=== PATIENT | female | born 1980 | race Caucasian/White ===

== ENCOUNTER 2021-01-24 06:20 | Emergency (ER) | payer OTHER ==
[2021-01-24 06:28] VITALS: BP 136/92; PULSE 76; TEMP 98.4; BMI 33.3
[2021-01-24] MEDS ORDERED: ACETAMINOPHEN 1000 MG/100 ML VIAL (NON FORMULARY) IVPB ONE (07:28)
[2021-01-24] MEDS ORDERED: LIDOCAINE 5% TOPICAL PATCH TP ONE (07:28)
[2021-01-24] MEDS ORDERED: KETOROLAC TROMETHAMINE 15 MG/ML VIAL IVPUSH ONE (07:28)
[2021-01-24] MEDS ORDERED: KETOROLAC TROMETHAMINE 30 MG/1 ML VIAL IM ONE (07:55)
[2021-01-24] MEDS ORDERED: KETOROLAC TROMETHAMINE 15 MG/ML VIAL ONE (07:55)
[2021-01-24] MEDS ORDERED: ACETAMINOPHEN 500 MG TABLET (FP) PO ONE (07:55)
[2021-01-24] MEDS ORDERED: ACETAMINOPHEN 500 MG TABLET (FP) ONE (07:56)
[2021-01-24] MEDS ORDERED: KETOROLAC TROMETHAMINE 30 MG/1 ML VIAL ONE (07:57)
[2021-01-24] MEDS ORDERED: LIDOCAINE PATCH REMOVAL MC ONE (22:00)
== END 2021-01-24 08:31 | disposition home or self-care (01) ==
LOC: JER 06:20
PROC: 3E0233Z Introduction of Anti-inflammatory into Muscle, Percutaneous Approach (ICD-10-PCS; principal; 2021-01-24)
DX: M54.42 Lumbago with sciatica, left side (principal)
CPT/HCPCS: 84703; 96372; 99284-25

== ENCOUNTER 2021-11-27 10:00 | Observation (INO) | payer OTHER ==
[2021-11-27] MEDS ORDERED: KETOROLAC TROMETHAMINE 30 MG/1 ML VIAL IM ONE (10:37)
[2021-11-27] MEDS ORDERED: ACETAMINOPHEN 325 MG TABLET (FP) PO ONE ×2 (10:37→21:15)
[2021-11-27] MEDS ORDERED: ACETAMINOPHEN 325 MG TABLET (FP) ONE (10:41)
[2021-11-27] MEDS ORDERED: KETOROLAC TROMETHAMINE 30 MG/1 ML VIAL ONE (10:42)
[2021-11-27] MEDS: NICOTINE 14 MG/24 HOURS TOPICAL PATCH TD SCH (13:22)
[2021-11-27 16:24] LABS: BASO % 1.1 % (0-2.0); HEMATOCRIT 33.3 % (32.4-45.2); MCH 25.7 pg (25.7-33.7); MCHC 33.1 g/dl (32.0-36.0); MEAN CELL VOLUME 77.6 fl (80-96); MEAN PLT VOLUME 9.4 fl (7.5-11.1); MONO % 10.3 % (3.8-10.2); NEUT % 43.6 % (42.8-82.8); PLATELET COUNT 280 10^3/uL (134-434); RBC 4.29 M/mm3 (3.60-5.2); RDW 19.3 % (11.6-15.6); WHITE BLOOD COUNT 8.3 K/mm3 (4.0-10.0)
[2021-11-27 16:48] LABS: ALBUMIN 3.5 g/dl (3.4-5.0); BLOOD UREA NITROGEN 16.1 mg/dL (7-18); CALCIUM 9.5 mg/dL (8.5-10.1)
[2021-11-27 16:51] LABS: CREATININE 0.9 mg/dL (0.55-1.3)
[2021-11-27 16:53] LABS: BILIRUBIN,TOTAL 0.4 mg/dL (0.2-1); TOT PROT 6.8 g/dl (6.4-8.2)
[2021-11-27] MEDS ORDERED: KETOROLAC TROMETHAMINE 30 MG/1 ML VIAL IM PRN (17:44)
[2021-11-27 20:22] VITALS: BMI 35.4
[2021-11-27] MEDS ORDERED: oxyCODONE HCL 5 MG TABLET PO ONE (21:15)
[2021-11-27] MEDS ORDERED: LIDOCAINE PATCH REMOVAL MC ONE (22:00)
[2021-11-28 08:38] LABS: EOS % 4.9 % (0-4.5); HEMATOCRIT 30.6 % (32.4-45.2); HEMOGLOBIN 10.3 GM/dL (10.7-15.3); MCH 26.1 pg (25.7-33.7); MCHC 33.7 g/dl (32.0-36.0); MEAN CELL VOLUME 77.6 fl (80-96); MEAN PLT VOLUME 9.5 fl (7.5-11.1); MONO % 8.3 % (3.8-10.2); NEUT % 46.8 % (42.8-82.8); PLATELET COUNT 248 10^3/uL (134-434); RBC 3.94 M/mm3 (3.60-5.2); RDW 19.6 % (11.6-15.6); WHITE BLOOD COUNT 8.6 K/mm3 (4.0-10.0)
[2021-11-28 08:52] LABS: CALCIUM 8.9 mg/dL (8.5-10.1)
[2021-11-28 08:53] LABS: ALBUMIN 2.9 g/dl (3.4-5.0); BLOOD UREA NITROGEN 18.7 mg/dL (7-18); MAGNESIUM 2.2 mg/dL (1.8-2.4)
[2021-11-28 08:55] LABS: CREATININE 0.8 mg/dL (0.55-1.3)
[2021-11-28 08:56] LABS: BILIRUBIN,TOTAL 0.8 mg/dL (0.2-1); PHOSPHOROUS 3.9 mg/dL (2.5-4.9); TOT PROT 5.9 g/dl (6.4-8.2)
[2021-11-28] MEDS ORDERED: ENOXAPARIN NA (PORCINE) 40 MG/0.4 ML DISP.SYRIN SQ SCH (10:00)
[2021-11-28] MEDS: ENOXAPARIN NA (PORCINE) 40 MG/0.4 ML DISP.SYRIN SQ SCH (10:28)
[2021-11-28] MEDS: ACETAMINOPHEN 325 MG TABLET (FP) PO PRN (10:28)
[2021-11-28] MEDS: NICOTINE 14 MG/24 HOURS TOPICAL PATCH TD SCH (10:28)
[2021-11-28] MEDS: CYCLOBENZAPRINE HCL 5 MG TABLET PO PRN ×2 (12:30→16:46)
[2021-11-28] MEDS: PANTOPRAZOLE 40 MG TABLET PO SCH (12:30)
[2021-11-28] MEDS: IBUPROFEN 800 MG/8 ML IJ IVPB SCH ×3 (12:31→23:20)
[2021-11-28] MEDS ORDERED: MAG HYDROX/AL HYDROX/SIMETH 30 ML UNIT-DOSE CUP PO ONE ×2 (19:07→23:39)
[2021-11-29] MEDS: IBUPROFEN 800 MG/8 ML IJ IVPB SCH (06:30)
[2021-11-29] MEDS: CYCLOBENZAPRINE HCL 5 MG TABLET PO PRN ×3 (07:47→21:40)
[2021-11-29] MEDS: NICOTINE 14 MG/24 HOURS TOPICAL PATCH TD SCH (09:52)
[2021-11-29] MEDS: ENOXAPARIN NA (PORCINE) 40 MG/0.4 ML DISP.SYRIN SQ SCH (09:53)
[2021-11-29] MEDS: PANTOPRAZOLE 40 MG TABLET PO SCH (09:53)
[2021-11-29] MEDS ORDERED: MAG HYDROX/AL HYDROX/SIMETH 30 ML UNIT-DOSE CUP PO PRN ×2 (11:12→11:14)
[2021-11-29] MEDS ORDERED: IBUPROFEN 800 MG/8 ML IJ IVPB PRN (13:02)
[2021-11-29] MEDS: POLYETHYLENE GLYCOL (HEALTHYLAX) 3350 17 GM PACKET PO SCH ×2 (13:20→21:36)
[2021-11-29] MEDS: ACETAMINOPHEN 325 MG TABLET (FP) PO PRN (17:24)
[2021-11-29] MEDS ORDERED: MELATONIN 5 MG TABLETS PO PRN (19:01)
[2021-11-30] MEDS: CYCLOBENZAPRINE HCL 5 MG TABLET PO PRN (05:29)
[2021-11-30] MEDS: ACETAMINOPHEN 325 MG TABLET (FP) PO PRN (05:29)
[2021-11-30 07:53] VITALS: BP 125/84; PULSE 88; TEMP 98.2
== END 2021-11-30 11:26 | disposition home or self-care (01) ==
LOC: JER 10:00 → JERBED 12:42 → J6S 18:20
PROVIDERS: ADMIT Internal Medicine; ATTEND Internal Medicine
PROC: 3E023GC Introduction of Other Therapeutic Substance into Muscle, Percutaneous Approach (ICD-10-PCS; principal; 2021-11-27)
DX: M54.9 Dorsalgia, unspecified (principal); G89.29 Other chronic pain; E66.8 Other obesity; Z68.35 Body mass index [BMI] 35.0-35.9, adult; Z88.6 Allergy status to analgesic agent; F17.210 Nicotine dependence, cigarettes, uncomplicated
CPT/HCPCS: 36415; 72100-TC-FY; 80053; 83735; 84100; 85025; 93005; 93010; 96372; 97116-GP; 97162-GP; 99285-25; C9803; G0378; U0003; U0005

== ENCOUNTER 2021-12-02 18:05 | Observation (INO) | payer OTHER ==
[2021-12-02] MEDS ORDERED: KETOROLAC TROMETHAMINE 30 MG/1 ML VIAL IVPUSH ONE (19:29)
[2021-12-02] MEDS ORDERED: diazePAM CARPU-JECT 10 MG/2 ML DISP.SYRIN IVPUSH ONE (19:29)
[2021-12-02] MEDS ORDERED: DEXAMETHASONE SOD PHOSPHATE 10 MG/1 ML VIAL IVPUSH ONE (19:29)
[2021-12-02] MEDS ORDERED: DEXAMETHASONE SOD PHOSPHATE 10 MG/1 ML VIAL ONE (20:04)
[2021-12-02] MEDS ORDERED: diazePAM CARPU-JECT 10 MG/2 ML DISP.SYRIN ONE (20:04)
[2021-12-02] MEDS ORDERED: KETOROLAC TROMETHAMINE 30 MG/1 ML VIAL ONE (20:04)
[2021-12-02 20:45] LABS: BASO % 1.4 % (0-2.0); EOS % 4.8 % (0-4.5); HEMATOCRIT 34.6 % (32.4-45.2); HEMOGLOBIN 11.5 GM/dL (10.7-15.3); LYMPH % 37.3 % (8-40); MCHC 33.2 g/dl (32.0-36.0); MEAN CELL VOLUME 78.4 fl (80-96); MEAN PLT VOLUME 9.6 fl (7.5-11.1); MONO % 7.4 % (3.8-10.2); NEUT % 49.1 % (42.8-82.8); PLATELET COUNT 263 10^3/uL (134-434); RBC 4.41 M/mm3 (3.60-5.2); RDW 19.7 % (11.6-15.6); WHITE BLOOD COUNT 7.3 K/mm3 (4.0-10.0)
[2021-12-02 21:05] LABS: BLOOD UREA NITROGEN 20.3 mg/dL (7-18); CALCIUM 9.1 mg/dL (8.5-10.1); MAGNESIUM 2.2 mg/dL (1.8-2.4)
[2021-12-02 21:08] LABS: CREATININE 0.8 mg/dL (0.55-1.3)
[2021-12-02 21:10] LABS: BILIRUBIN,TOTAL 0.4 mg/dL (0.2-1)
[2021-12-02 21:14] LABS: TOT PROT 7.1 g/dl (6.4-8.2)
[2021-12-02 21:18] LABS: ALBUMIN 3.6 g/dl (3.4-5.0)
[2021-12-02] MEDS ORDERED: ACETAMINOPHEN 1000 MG/100 ML BAG IVPB ONE (21:52)
[2021-12-02] MEDS ORDERED: ACETAMINOPHEN INJECTION 100 ML IVPB ONE (22:16)
[2021-12-03] MEDS ORDERED: METHYL SALICYLATE/MENTHOL OINT 30 GM TUBE TP PRN (02:21)
[2021-12-03] MEDS ORDERED: ACETAMINOPHEN 325 MG TABLET (FP) PO PRN (05:00)
[2021-12-03] MEDS: CYCLOBENZAPRINE HCL 5 MG TABLET PO SCH ×4 (05:37→21:20)
[2021-12-03] MEDS ORDERED: CYCLOBENZAPRINE HCL 5 MG TABLET PO SCH (06:00)
[2021-12-03] MEDS ORDERED: BUPRENORPHINE/NALOXONE 8 MG/2 MG FILM PACKET SL SCH (06:00)
[2021-12-03 06:04] VITALS: BMI 37.3
[2021-12-03 08:37] LABS: BASO % 1.1 % (0-2.0); EOS % 0.1 % (0-4.5); HEMATOCRIT 34.5 % (32.4-45.2); HEMOGLOBIN 11.7 GM/dL (10.7-15.3); LYMPH % 18.7 % (8-40); MCH 26.3 pg (25.7-33.7); MCHC 33.8 g/dl (32.0-36.0); MEAN CELL VOLUME 77.7 fl (80-96); MONO % 3.2 % (3.8-10.2); NEUT % 76.9 % (42.8-82.8); PLATELET COUNT 269 10^3/uL (134-434); RBC 4.43 M/mm3 (3.60-5.2); RDW 19.2 % (11.6-15.6); WHITE BLOOD COUNT 9.8 K/mm3 (4.0-10.0)
[2021-12-03 08:56] LABS: ALBUMIN 3.7 g/dl (3.4-5.0); BLOOD UREA NITROGEN 16.6 mg/dL (7-18); CALCIUM 9.2 mg/dL (8.5-10.1)
[2021-12-03 08:57] LABS: MAGNESIUM 1.9 mg/dL (1.8-2.4)
[2021-12-03 09:00] LABS: PHOSPHOROUS 2.3 mg/dL (2.5-4.9)
[2021-12-03 09:01] LABS: BILIRUBIN,TOTAL 0.4 mg/dL (0.2-1)
[2021-12-03] MEDS: BUPRENORPHINE/NALOXONE 8 MG/2 MG FILM PACKET SL SCH (09:18)
[2021-12-03] MEDS: POLYETHYLENE GLYCOL (HEALTHYLAX) 3350 17 GM PACKET PO SCH (09:18)
[2021-12-03] MEDS: ENOXAPARIN NA (PORCINE) 40 MG/0.4 ML DISP.SYRIN SQ SCH (09:18)
[2021-12-03] MEDS: NICOTINE 14 MG/24 HOURS TOPICAL PATCH TD SCH (09:18)
[2021-12-03] MEDS ORDERED: diazePAM 5 MG TABLET PO SCH (10:00)
[2021-12-03] MEDS ORDERED: ACETAMINOPHEN 325 MG TABLET (FP) PO SCH (11:00)
[2021-12-03] MEDS ORDERED: QUEtiapine FUMARATE 50 MG TABLET PO PRN (12:04)
[2021-12-03] MEDS ORDERED: NAPH,MB-DB/K PH,MBDB POWDER PACKET PO ONE (12:06)
[2021-12-03] MEDS ORDERED: MAG HYDROX/AL HYDROX/SIMETH 30 ML UNIT-DOSE CUP PO PRN ×2 (12:51→21:13)
[2021-12-03] MEDS: IBUPROFEN 400 MG TABLET (FP) PO SCH ×2 (13:11→21:19)
[2021-12-03] MEDS: GABAPENTIN 300 MG CAPSULE PO SCH ×2 (14:02→21:19)
[2021-12-03 15:03] LABS: URINE APPEARANCE CLEAR; URINE BILIRUBIN NEGATIVE (NEGATIVE); URINE COLOR YELLOW; URINE GLUCOSE (UA) NEGATIVE (NEGATIVE); URINE KETONE TRACE (NEGATIVE); URINE LEUK ESTERASE NEGATIVE (NEGATIVE); URINE NITRITE NEGATIVE (NEGATIVE); URINE PROTEIN NEGATIVE (NEGATIVE)
[2021-12-03] MEDS: ACETAMINOPHEN 500 MG TABLET (FP) PO SCH ×3 (15:29→21:20)
[2021-12-03] MEDS ORDERED: diphenhydrAMINE HCL 25 MG CAPSULE (FP) PO PRN (19:59)
[2021-12-03] MEDS ORDERED: ESCITALOPRAM OXALATE 10 MG TABLET PO SCH (20:00)
[2021-12-03] MEDS ORDERED: MELATONIN 5 MG TABLETS PO PRN (21:06)
[2021-12-03] MEDS: DIVALPROEX SODIUM 500 MG TABLET E.C. PO SCH ×2 (21:20→21:22)
[2021-12-03] MEDS ORDERED: traZODone HCL 100 MG TABLET (FP) PO SCH (22:00)
[2021-12-03] MEDS ORDERED: LURASIDONE HCL 40 MG TABLET PO SCH (22:00)
[2021-12-04] MEDS: IBUPROFEN 400 MG TABLET (FP) PO SCH ×2 (02:57→08:28)
[2021-12-04] MEDS: ACETAMINOPHEN 500 MG TABLET (FP) PO SCH (06:35)
[2021-12-04] MEDS: GABAPENTIN 300 MG CAPSULE PO SCH (06:36)
[2021-12-04] MEDS: CYCLOBENZAPRINE HCL 5 MG TABLET PO SCH (06:36)
[2021-12-04] MEDS: BUPRENORPHINE/NALOXONE 8 MG/2 MG FILM PACKET SL SCH (09:41)
[2021-12-04] MEDS: DIVALPROEX SODIUM 500 MG TABLET E.C. PO SCH (09:44)
[2021-12-04] MEDS: ENOXAPARIN NA (PORCINE) 40 MG/0.4 ML DISP.SYRIN SQ SCH (09:44)
[2021-12-04] MEDS: POLYETHYLENE GLYCOL (HEALTHYLAX) 3350 17 GM PACKET PO SCH (09:44)
[2021-12-04] MEDS: NICOTINE 14 MG/24 HOURS TOPICAL PATCH TD SCH (09:53)
[2021-12-04] MEDS ORDERED: PANTOPRAZOLE 40 MG TABLET PO SCH (10:00)
[2021-12-04 10:36] VITALS: BP 110/60; PULSE 80; TEMP 98
[2021-12-04 10:39] LABS: BLOOD UREA NITROGEN 22.4 mg/dL (7-18)
[2021-12-04 10:42] LABS: CREATININE 0.8 mg/dL (0.55-1.3); PHOSPHOROUS 2.7 mg/dL (2.5-4.9)
== END 2021-12-04 12:55 | disposition home or self-care (01) | DRG 552 ==
LOC: JER 18:05 → JERBED 23:57 → UNDOADMOB 23:57 → INTOOBSV 12-03 00:58 → OBSVTOIN 12-03 00:58 → JERBED 12-03 00:58 → J6S 12-03 05:22 → JERBED 12-03 05:22 → UNDODISOB 12-04 12:55
PROVIDERS: ADMIT Internal Medicine; ATTEND Internal Medicine
PROC: 3E033NZ Introduction of Analgesics, Hypnotics, Sedatives into Peripheral Vein, Percutaneous Approach (ICD-10-PCS; principal; 2021-12-03)
PROC: 3E033GC Introduction of Other Therapeutic Substance into Peripheral Vein, Percutaneous Approach (ICD-10-PCS; 2021-12-03)
PROC: 3E023GC Introduction of Other Therapeutic Substance into Muscle, Percutaneous Approach (ICD-10-PCS; 2021-12-03)
DX: M47.816 Spondylosis without myelopathy or radiculopathy, lumbar region (principal); M79.18 Myalgia, other site; M51.36 Other intervertebral disc degeneration, lumbar region; F11.20 Opioid dependence, uncomplicated; M51.37 Other intervertebral disc degeneration, lumbosacral region; F20.9 Schizophrenia, unspecified; F31.9 Bipolar disorder, unspecified; E66.9 Obesity, unspecified; Z68.37 Body mass index [BMI] 37.0-37.9, adult; M41.9 Scoliosis, unspecified; N92.6 Irregular menstruation, unspecified; K59.00 Constipation, unspecified
CPT/HCPCS: 36415; 72148-TC; 80048; 80053; 81003; 83036; 83735; 84100; 85025; 93005; 93010; 96372; 96374; 96375; 97116-GP; 97162-GP; 99285-25; C9803-CS; G0378; J1100; U0003; U0005

== ENCOUNTER 2021-12-18 04:23 | Day surgery (SDC) | payer OTHER ==
[2021-12-17 10:19] VITALS: BMI 36.6
[2021-12-18] MEDS ORDERED: BUPIVACAINE HCL/PF 0.75% 10 ML VIAL ONE (07:35)
[2021-12-18] MEDS ORDERED: LIDOCAINE HCL/PF 1% SDV 5ML VIAL ONE (07:35)
[2021-12-18 10:30] VITALS: TEMP 98.9
[2021-12-18 12:12] VITALS: BP 116/72; PULSE 87
== END 2021-12-18 12:30 | disposition home or self-care (01) ==
LOC: JASU-SURG 04:23
PROVIDERS: ATTEND Pain Medicine Pain Medicine
DX: Z53.8 Procedure and treatment not carried out for other reasons (principal)
CPT/HCPCS: 81025

== ENCOUNTER 2022-01-04 20:35 | Emergency (ER) | payer OTHER ==
[2022-01-04 21:17] VITALS: BP 140/99; PULSE 82; BMI 37.0
[2022-01-04] MEDS ORDERED: KETOROLAC TROMETHAMINE 30 MG/1 ML VIAL IM ONE (23:35)
[2022-01-04] MEDS ORDERED: CYCLOBENZAPRINE HCL 10 MG TABLET (FP) PO ONE (23:35)
[2022-01-04] MEDS ORDERED: KETOROLAC TROMETHAMINE 30 MG/1 ML VIAL ONE (23:44)
[2022-01-04] MEDS ORDERED: CYCLOBENZAPRINE HCL 5 MG TABLET ONE (23:44)
[2022-01-05] MEDS ORDERED: LIDOCAINE 5% TOPICAL PATCH TP ONE (00:12)
[2022-01-05] MEDS ORDERED: LIDOCAINE PATCH REMOVAL MC SCH (22:00)
== END 2022-01-05 01:30 | disposition home or self-care (01) ==
LOC: JER 20:35
PROC: 3E023GC Introduction of Other Therapeutic Substance into Muscle, Percutaneous Approach (ICD-10-PCS; principal; 2022-01-04)
DX: M54.50 Low back pain, unspecified (principal); G89.29 Other chronic pain
CPT/HCPCS: 96372; 99284-25